=== PATIENT | female | born 2000 | race African-American/Black ===

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

== ENCOUNTER 2019-06-08 09:32 | Emergency (ER) | payer MEDICAID ==
[2019-06-08] MEDS ORDERED: ACETAMINOPHEN 325 MG TABLET PO ONE (09:50)
--- NOTE | 2019-06-08 10:02 | ER Document Report ---
HPI - HPI Time Seen by Provider: 06/08/19 09:47 Pain Level: 4 Context: Patient is a 18-year-old female presents to the emergency department with a chief complaint of toe pain. Patient states last night she was ambulating in her living room when she stubbed her right fifth toe around 9 PM on the bottom of the couch. Patient states that she does have some tenderness to the toe as she walks. She reports that she has taken ibuprofen at home despite her reported allergy which has helped a tiny bit. Patient denies swelling, bruising. Patient denies any significant past medical surgical history. - REPRODUCTIVE Reproductive: DENIES: : - MUSCULOSKELETAL Musculoskeletal: REPORTS: Extremity pain - Right toe pain Past Medical History - General Information source: Patient - Social History Smoking Status: Never Smoker Chew tobacco use (# tins/day): No Frequency of alcohol use: None Drug Abuse: None Family History: Reviewed & Not Pertinent Patient has suicidal ideation: No Patient has homicidal ideation: No - Past Medical History Cardiac Medical History: Reports: None Pulmonary Medical History: Reports: Hx Asthma EENT Medical History: Reports: None Neurological Medical History: Reports: None Endocrine Medical History: Reports: None Renal/ Medical History: Reports: None. Denies: Hx Peritoneal Dialysis Malignancy Medical History: Reports: None GI Medical History: Reports: None Musculoskeletal Medical History: Reports Hx Musculoskeletal Trauma - broken finger Skin Medical History: Reports None Psychiatric Medical History: Reports: None Traumatic Medical History: Reports: Hx Fractures Infectious Medical History: Reports: None Surgical Hx: Negative - Immunizations Immunizations up to date: Yes Hx Diphtheria, Pertussis, Tetanus Vaccination: Yes - 2011 Vertical Provider Document - CONSTITUTIONAL Agree With Documented VS: Yes Exam Limitations: No Limitations General Appearance: No Apparent Distress - INFECTION CONTROL TRAVEL OUTSIDE OF THE [place] IN LAST 30 DAYS: No - HEENT HEENT: Atraumatic, Normocephalic, PERRLA - RESPIRATORY Respiratory: Breath Sounds Normal, No Respiratory Distress - CARDIOVASCULAR Cardiovascular: Regular Rate, Regular Rhythm - GI/ABDOMEN Gastrointestinal: Abdomen Soft, Abdomen Non-Tender, Normal Bowel Sounds - MUSCULOSKELETAL/EXTREMETIES Notes: Tenderness noted to the dorsal aspect of the right dorsal aspect of the fifth toe. There is no edema, deformity or ecchymosis. Patient is able to wiggle her toes without distress. Patient is able to ambulate. - NEURO Level of Consciousness: Awake, Alert, Appropriate - DERM Integumentary: Warm, Dry, No Rash Course - Re-evaluation Re-evalutation: 06/08/19 10:01 We will obtain an x-ray of the fifth toe to rule out fracture dislocation. Patient reports she is allergic to Motrin but did take ibuprofen last night without any reaction. I will give Tylenol for pain. - Vital Signs Vital signs: Temp Pulse Resp BP Pulse Ox 98.0 F 73 18 136/82 H 100 06/08/19 09:41 06/08/19 09:41 06/08/19 09:41 06/08/19 09:41 06/08/19 09:41 - Diagnostic Test Radiology results interpreted by me: 06/08/19 10:53 Toe X-Ray 06/08/19 09:50 IMPRESSION: Likely midshaft 5th proximal phalanx fracture with questionable intra-articular extension into the MTP joint. No significant displacement. Discharge - Discharge Clinical Impression: Toe fracture, right Qualifiers: Encounter type: initial encounter Toe: lesser toe Fracture type: closed Phalanx: proximal Fracture alignment: nondisplaced Qualified Code(s): S92.514A - Nondisplaced fracture of proximal phalanx of right lesser toe(s), initial encounter for closed fracture Condition: Good Disposition: HOME, SELF-CARE Additional Instructions: Today you were seen in the emergency department for a right fifth toe injury. It does appear that he may have a fracture that extends into the joint. We have placed you in a hard walking shoe with crutches. Please follow-up with orthopedics as I have given you referrals. Call them today for an appointment. Please do not weight-bear until you follow-up with orthopedics. Please continue to use Motrin or Tylenol as needed for pain. Please return if you develop severe swelling, severe pain or numbness to the toe or any other concerning signs or symptoms. Fractured Toe You have fractured your toe. Although this fracture doesn't need a cast or splint, emergency evaluation was needed to assess the straightness of the bones and joints. Reduction ("setting") is necessary for toe fractures which are crooked or twisted. A toe fracture will heal in about three weeks. Usually, the fractured toe is taped to the next toe. The second toe acts as a moving splint to protect the broken one. Ice and elevation help during the first 48 hours. You may need crutches at first if walking is painful. When you begin walking, be careful NOT to do things that hurt. If weight bearing is not comfortable within a few days, you may require a special shoe, walking boot, or cast. Call the doctor or return at once if severe swelling, severe pain, or numbness develop in the toe, or if you suspect you may have re-injured it. Forms: Return to Work Referrals: ROSS LYNN DO [ACTIVE STAFF] - Follow up as needed CYDNEY ELIAS MD [ACTIVE STAFF] - Follow up as needed
[2019-06-08] MEDS ORDERED: ACETAMINOPHEN 325 MG TABLET ONE (10:06)
--- NOTE | 2019-06-08 10:31 | RADIOLOGY REPORT (SQ) ---
EXAM DESCRIPTION: TOE RIGHT COMPLETED DATE/TIME: 06/08/2019 10:06 am REASON FOR STUDY: right 5th toe pain, stubbed toe last night COMPARISON: None. NUMBER OF VIEWS: Two views. TECHNIQUE: AP and lateral images acquired of the right fifth toe. LIMITATIONS: None. FINDINGS: MINERALIZATION: Normal. BONES: There is an obliquely oriented lucency through the midshaft 5th proximal phalanx. Questionabl e intra-articular extension seen on the oblique projection into the MTP joint. No significant displa cement. JOINTS: No dislocation. SOFT TISSUES: No soft tissue swelling. No foreign body. OTHER: No other significant finding. IMPRESSION: Likely midshaft 5th proximal phalanx fracture with questionable intra-articular extensio n into the MTP joint. No significant displacement. COMMENT: SITE OF TRAUMA/COMPLAINT MARKED/STAMP COMPLETED: NO. TECHNICAL DOCUMENTATION: JOB ID: [id number] [employer]- All Rights Reserved Reading location - IP/workstation name: [email or web address]
[2019-06-08 11:22] VITALS: BP 121/66
== END 2019-06-08 11:27 | disposition home or self-care (01) ==
LOC: ER 09:32
DX: S92.514A Nondisplaced fracture of proximal phalanx of right lesser toe(s), initial encounter for closed fracture (principal); W22.03XA Walked into furniture, initial encounter; J45.909 Unspecified asthma, uncomplicated
CPT/HCPCS: 73660; J3490; 99283

== ENCOUNTER 2019-11-02 17:10 | Emergency (ER) | payer SELFPAY ==
[2019-11-02] MEDS ORDERED: ACETAMINOPHEN 325 MG TABLET PO ONE (17:25)
[2019-11-02] MEDS ORDERED: DICYCLOMINE HCL 20 MG TABLET PO ONE (17:27)
--- NOTE | 2019-11-02 17:29 | ER Document Report ---
ED Medical Screen (RME) - General Chief Complaint: Flank Pain Stated Complaint: RIGHT LOWER SIDE PAIN Time Seen by Provider: 11/02/19 17:21 Notes: Patient is a 18-year-old female who presents to the emergency department with a chief complaint of right lower flank pain. Her symptoms started about 5 days ago and then went away and then came back this morning. Patient states that her menstrual cycles are irregular. She denies any dysuria or unusual vaginal discharge. Exam: Soft, mildly tender right lateral flank area. I have greeted and performed a rapid initial assessment of this patient. A comprehensive ED assessment and evaluation of the patient, analysis of test results and completion of medical decision making process will be conducted by an additional ED providers. TRAVEL OUTSIDE OF THE [place] IN LAST 30 DAYS: No - Related Data Allergies/Adverse Reactions: ibuprofen [From Motrin] Adverse Reaction (Mild, Verified 11/02/19 17:25) Past Medical History - Social History Family history: Arthritis, DM, Hyperlipidemia, Hypertension, Malignancy, Thyroid Disfunction Pulmonary Medical History: Reports: Hx Asthma Renal/ Medical History: Denies: Hx Peritoneal Dialysis Musculoskeltal Medical History: Reports Hx Musculoskeletal Trauma - broken finger Traumatic Medical History: Reports: Hx Fractures - Immunizations Immunizations up to date: Yes Hx Diphtheria, Pertussis, Tetanus Vaccination: Yes - 2011 Physical Exam - Vital signs Vitals: Temp Pulse Resp BP Pulse Ox 97.7 F 65 16 150/87 H 100 11/02/19 17:20 11/02/19 17:20 11/02/19 17:20 11/02/19 17:20 11/02/19 17:20 Course - Vital Signs Vital signs: Temp Pulse Resp BP Pulse Ox 97.7 F 65 16 150/87 H 100 11/02/19 17:20 11/02/19 17:20 11/02/19 17:20 11/02/19 17:20 11/02/19 17:20
[2019-11-02 18:01] LABS: ABSOLUTE EOSINOPHILS # (AUTO) 0.4 10^3/uL (0.0-0.6); ABSOLUTE LYMPHOCYTES (AUTO) 3.4 10^3/uL (0.5-4.7); ABSOLUTE MONOCYTES (AUTO) 1.1 10^3/uL (0.1-1.4); ABSOLUTE NEUT (AUTO) 3.9 10^3/uL (1.7-8.2); BASOPHILS % (AUTO) 0.5 % (0-2); EOSINOPHILS % (AUTO) 4.8 % (0-6); HEMOGLOBIN 12.9 g/dL (12.0-15.5); LYMPHOCYTES % (AUTO) 38.2 % (13-45); MEAN CORPUSCULAR HEMOGLOBIN 30.8 pg (27.0-33.4); MEAN CORPUSCULAR HGB CONC 34.8 g/dL (32.0-36.0); MEAN CORPUSCULAR VOLUME 89 fl (80-97); MONOCYTES % (AUTO) 12.6 % (3-13); PLATELET COUNT 372 10^3/uL (150-450); RED BLOOD COUNT 4.18 10^6/uL (3.72-5.28); RED CELL DISTRIBUTION WIDTH 12.9 % (11.5-14.0); SEGMENTED NEUTROPHILS % (AUTO) 43.9 % (42-78); TOTAL CELLS COUNTED % (AUTO) 100 %; WHITE BLOOD COUNT 8.8 10^3/uL (4.0-10.5)
[2019-11-02 18:20] LABS: ALBUMIN 4.2 g/dL (3.7-5.6); ALKALINE PHOSPHATASE 73 U/L (50-135); ANION GAP 10 (5-19); ASPARTATE AMINO TRANSFERASE 17 U/L (5-30); BILIRUBIN,DIRECT 0.2 mg/dL (0.0-0.4); BILIRUBIN,TOTAL 0.4 mg/dL (0.2-1.3); BLOOD UREA NITROGEN 14 mg/dL (7-20); CALCIUM 9.4 mg/dL (8.4-10.2); CARBON DIOXIDE 28 mmol/L (22-30); CHLORIDE 99 mmol/L (98-107); GLUCOSE 88 mg/dL (75-110); POTASSIUM 4.1 mmol/L (3.6-5.0); TOTAL PROTEIN 7.9 g/dL (6.3-8.2)
[2019-11-02 19:21] LABS: APPEARANCE,URINE CLOUDY; BILIRUBIN,URINE NEGATIVE (NEGATIVE); COLOR,URINE YELLOW; GLUCOSE, URINE NEGATIVE (NEGATIVE); KETONES,URINE NEGATIVE (NEGATIVE); LEUKOCYTE ESTERASE,URINE TRACE (NEGATIVE); NITRITE,URINE NEGATIVE (NEGATIVE); PROTEIN,URINE NEGATIVE (NEGATIVE); URINE SPECIFIC GRAVITY 1.021; UROBILINOGEN,URINE NEGATIVE mg/dL (<2.0)
[2019-11-02 20:26] VITALS: BP 143/89
--- NOTE | 2019-11-02 20:30 | ER Document Report ---
ED GI/ - General Chief Complaint: Flank Pain Stated Complaint: RIGHT LOWER SIDE PAIN Time Seen by Provider: 11/02/19 17:21 Primary Care Provider: NIURKA CLEANING MD [Primary Care Provider] - Follow up as needed Notes: Patient is a 18-year-old female presents to the emergency department with a chief complaint of right side pain. Patient reports this originally started about 5 days ago. Patient denies injury or fall. Patient reports that she did notice a divot on her mattress but she has been laying on it is not sure if this is what is causing her discomfort. Patient reports that over the weekend she did have multiple episodes of diarrhea that have since subsided. Patient denies fever. Patient has urinary symptoms. Patient denies abdominal pain, pelvic pain, vaginal discharge. Patient reports this morning upon waking up the right side pain had returned. Patient reports that sitting up, and movement seems to make the pain worse. Patient reports she does have a history of irregular menstrual cycles. Patient reports she is sexually active with a last menstrual cycle on . Patient is not on control. TRAVEL OUTSIDE OF THE [place] IN LAST 30 DAYS: No - Related Data Allergies/Adverse Reactions: ibuprofen [From Motrin] Adverse Reaction (Mild, Verified 11/02/19 17:25) Past Medical History - General Information source: Patient - Social History Smoking Status: Never Smoker Frequency of alcohol use: None Drug Abuse: None Lives with: Family Family History: Reviewed & Not Pertinent Patient has suicidal ideation: No Patient has homicidal ideation: No - Past Medical History Cardiac Medical History: Reports: None Pulmonary Medical History: Reports: Hx Asthma EENT Medical History: Reports: None Neurological Medical History: Reports: None Endocrine Medical History: Reports: None Renal/ Medical History: Reports: None. Denies: Hx Peritoneal Dialysis Malignancy Medical History: Reports: None GI Medical History: Reports: None Musculoskeletal Medical History: Reports Hx Musculoskeletal Trauma - broken finger Skin Medical History: Reports None Psychiatric Medical History: Reports: None Traumatic Medical History: Reports: Hx Fractures Infectious Medical History: Reports: None Surgical Hx: Negative - Immunizations Immunizations up to date: Yes Hx Diphtheria, Pertussis, Tetanus Vaccination: Yes - 2011 Review of Systems - Review of Systems Constitutional: No symptoms reported EENT: No symptoms reported Cardiovascular: No symptoms reported Respiratory: No symptoms reported Gastrointestinal: No symptoms reported Genitourinary: No symptoms reported Female Genitourinary: No symptoms reported Musculoskeletal: See HPI Skin: No symptoms reported Hematologic/Lymphatic: No symptoms reported Neurological/Psychological: No symptoms reported Physical Exam - Vital signs Vitals: Temp Pulse Resp BP Pulse Ox 97.7 F 65 16 150/87 H 100 11/02/19 17:20 11/02/19 17:20 11/02/19 17:20 11/02/19 17:20 11/02/19 17:20 Interpretation: Hypertensive - Notes Notes: GENERAL: Well-appearing, well-nourished and in no acute distress. HEAD: Atraumatic, normocephalic. EYES: Pupils equal round and reactive to light, extraocular movements intact, sclera anicteric, conjunctiva are normal. ENT: Nares patent, oropharynx clear without exudates. Moist mucous membranes. NECK: Normal range of motion, supple without lymphadenopathy or JVD. LUNGS: Breath sounds clear to auscultation bilaterally and equal. No wheezes rales or rhonchi. HEART: Regular rate and rhythm without murmurs, rubs or gallops. ABDOMEN: Soft, nontender, normoactive bowel sounds. No guarding, no rebound. No masses appreciated. BACK: No cervical, thoracic, lumbar midline tenderness. No saddle anesthesia, normal distal neurovascular exam. NO CVA tenderness. GENITOURINARY: Deferred. EXTREMITIES: Normal range of motion, no pitting or edema. No clubbing or cyanosis. Patient has tenderness with palpation above the right hip. There is no erythema or ecchymosis. There is no tenderness to the right hip. NEUROLOGICAL: Cranial nerves II through XII grossly intact. Normal speech, normal gait. PSYCH: Normal mood, normal affect. SKIN: Warm, Dry, normal turgor, no rashes or lesions noted. Course - Re-evaluation Re-evalutation: 11/02/19 20:29 Upon initial examination patient is resting comfortably and sitting upright on s tretcher. Patient's physical examination and laboratory findings are unremarkable. Patient is nontoxic-appearing. Patient does not have CVA tenderness. Patient does not have abdominal tenderness. Patient is tender right above the right hip joint. Patient denies injury or fall. This is most likely musculoskeletal in nature. Patient reports that she did notice a divot on her mattress and is not sure if she slept the wrong way causing the pain on her right side. Patient reports she has been laying on her left side and not the right. Patient also is concerned about possible as she does have irregular periods, is sexually active and not on control. Will add on a urine hCG. 11/02/19 20:30 At this time I do not believe any imaging is necessary. We will treat this as a musculoskeletal type pain. Patient to use warm compresses, anti-inflammatories and rest. Patient was given strict return precautions. 11/02/19 20:33 Patient's hCG was negative. I did inform the patient of this. - Vital Signs Vital signs: Temp Pulse Resp BP Pulse Ox 98.2 F 57 L 16 143/89 H 100 11/02/19 20:24 11/02/19 20:24 11/02/19 17:20 11/02/19 20:24 11/02/19 20:24 - Laboratory Result Diagrams: 11/02/19 17:35 11/02/19 17:35 Laboratory results interpreted by me: 11/02/19 17:35 Ur Leukocyte Esterase TRACE H 11/02/19 20:28 Patient's blood work is unremarkable does not show a leukocytosis, anemia, alteration electrolytes or kidney function. Patient's liver enzymes are within normal limits. Patient does not have any sign of infection within the urine to include leukocytes or WBCs. The urinalysis was contaminated with 41 epithelial squamous cells. Laboratory 11/02/19 11/02/19 11/02/19 17:35 17:35 17:35 WBC 8.8 RBC 4.18 Hgb 12.9 Hct 37.0 MCV 89 MCH 30.8 MCHC 34.8 RDW 12.9 Plt Count 372 Lymph % (Auto) 38.2 Banks % (Auto) 12.6 Eos % (Auto) 4.8 Baso % (Auto) 0.5 Absolute Neuts (auto) 3.9 Absolute Lymphs (auto) 3.4 Absolute Monos (auto) 1.1 Absolute Eos (auto) 0.4 Absolute Basos (auto) 0.0 Seg Neutrophils % 43.9 Sodium 137.3 Potassium 4.1 Chloride 99 Carbon Dioxide 28 Anion Gap 10 BUN 14 Creatinine 0.69 Est GFR ( Amer) > 60 Est GFR (MDRD) Non-Af > 60 Glucose 88 Calcium 9.4 Total Bilirubin 0.4 Direct Bilirubin 0.2 Neonat Total Bilirubin Not Reportable Neonat Direct Bilirubin Not Reportable Neonat Indirect Bili Not Reportable AST 17 ALT 12 Alkaline Phosphatase 73 Total Protein 7.9 Albumin 4.2 Urine Color YELLOW Urine Appearance CLOUDY Urine pH 7.0 Ur Specific Mackey 1.021 Urine Protein NEGATIVE Urine Glucose (UA) NEGATIVE Urine Ketones NEGATIVE Urine Blood NEGATIVE Urine Nitrite NEGATIVE Urine Bilirubin NEGATIVE Urine Urobilinogen NEGATIVE Ur Leukocyte Esterase TRACE H Urine WBC (Auto) 5 Urine RBC (Auto) 3 Urine Bacteria (Auto) TRACE Squamous Epi Cells Auto 41 Urine Mucus (Auto) RARE Urine Ascorbic Acid NEGATIVE Discharge - Discharge Clinical Impression: Acute right-sided back pain Qualifiers: Back pain location: low back pain Sciatica presence: without sciatica Qualified Code(s): M54.5 - Low back pain Condition: Stable Disposition: HOME, SELF-CARE Additional Instructions: *Today was seen in the emergency department for right side pain. Your blood work and physical exam was reassuring and at this time he did not show any signs of infection or acute process. Please monitor your symptoms over the next few days. I believe that your symptoms are musculoskeletal in nature. This could have been how you have slept due to your uneven mattress at home. Please use warm compresses to the site, rest, and monitor for worsening signs or symptoms. Please return the emergency department if you do develop abdominal pain that occurs in a specific area, fever, urinary symptoms, vaginal bleeding or discharge, flank pain which is located over the kidney area, or any new or worsening symptoms. Referrals: NIURKA CLEANING MD [Primary Care Provider] - Follow up as needed
== END 2019-11-02 20:50 | disposition home or self-care (01) ==
LOC: ER 17:10
DX: M54.5 Low back pain (principal); R10.9 Unspecified abdominal pain; Z88.6 Allergy status to analgesic agent
CPT/HCPCS: 99284; 36415; 85025; 81025; 80053; 81001; J3490

== ENCOUNTER 2020-04-18 23:11 | Emergency (ER) | payer SELFPAY ==
[2020-04-19 00:01] VITALS: BP 170/90
== END 2020-04-19 00:14 | disposition left against medical advice (07) ==
LOC: ER 23:11
DX: Z53.21 Procedure and treatment not carried out due to patient leaving prior to being seen by health care provider (principal)

== ENCOUNTER 2020-04-20 07:18 | Emergency (ER) | payer SELFPAY ==
[2020-04-20] MEDS ORDERED: ACETAMINOPHEN 325 MG TABLET PO ONE (07:27)
[2020-04-20 07:40] VITALS: BP 156/106
[2020-04-20] MEDS ORDERED: ACETAMINOPHEN 325 MG TABLET ONE (08:00)
--- NOTE | 2020-04-20 08:22 | ER Document Report ---
ED General - General Chief Complaint: Sore Throat Stated Complaint: SORE THROAT Time Seen by Provider: 04/20/20 07:58 TRAVEL OUTSIDE OF THE [place] IN LAST 30 DAYS: No - HPI Notes: Chief complaint: Sore throat and fever History of present illness: Generally healthy 19-year-old female with 24-hour history of sore throat and fever. Patient says she usually gets strep about twice a year. Takes no regular medications. Patient initially reported to the nurses that she had a history of allergy to ibuprofen but then told me she had been taking Motrin at home and tolerating this without difficulty. I advised her that she probably is not allergic to ibuprofen. Last normal menstrual period 2 and half weeks ago. - Related Data Allergies/Adverse Reactions: ibuprofen [From Motrin] Adverse Reaction (Mild, Verified 11/02/19 17:25) Past Medical History - General Information source: Patient - Social History Smoking Status: Current Some Day Smoker Chew tobacco use (# tins/day): No Drug Abuse: None Family History: Reviewed & Not Pertinent Patient has homicidal ideation: No Pulmonary Medical History: Reports: Hx Asthma Endocrine Medical History: Reports: None Renal/ Medical History: Denies: Hx Peritoneal Dialysis Musculoskeletal Medical History: Reports Hx Musculoskeletal Trauma - broken finger Traumatic Medical History: Reports: Hx Fractures - Immunizations Immunizations up to date: Yes Hx Diphtheria, Pertussis, Tetanus Vaccination: Yes - 2011 Review of Systems - Review of Systems Notes: Constitutional: As per HPI. HENT: As per HPI. Eyes: Negative for visual changes. Cardiovascular: Negative for chest pain. Respiratory: Negative for shortness of breath. Gastrointestinal: Negative for abdominal pain, vomiting or diarrhea. Genitourinary: Negative for dysuria. Musculoskeletal: Negative for back pain. Skin: Negative for rash. Neurological: Negative for headaches, weakness or numbness. 10 point ROS negative except as marked above and in HPI. Physical Exam - Vital signs Vitals: Temp Pulse Resp BP 101.7 F H 117 H 20 156/106 H 04/20/20 07:21 04/20/20 07:21 04/20/20 07:21 04/20/20 07:21 - Notes Notes: GENERAL: Obese female of approximately stated age who appears moderately uncomfortable. SKIN: Good turgor no rashes. HEAD: Normocephalic atraumatic. EYES: PERRLA. EOMI. Conjunctivae and sclerae clear. EARS: CANALS AND TMS CLEAR. NOSE: CLEAR. MOUTH: Moist mucosa. Good dentition. No stridor. No trismus. No drooling. Voice is normal. Throat: Tonsils are enlarged and injected nearly touching in the midline with thick yellow-white exudate present. NECK: Supple. No masses or thyromegaly. Bilateral tender anterior cervical adenopathy. Carotids 2+ without bruits. No JVD. BACK: Symmetrical without tenderness. CHEST: Respirations unlabored. Breath sounds clear and symmetrical. HEART: Regular rhythm. No murmur gallop or rub. ABDOMEN: Obese. Soft nontender without masses, organomegaly or rebound. Bowel sounds normally active. No bruits. GENITALIA: Deferred. EXTREMITIES: No edema. No calf tenderness. Cap refill less than 1.5 seconds. Dorsalis pedis and posterior tibial pulses 3+ and symmetrical. NEUROLOGICAL: GCS 15. Alert and oriented x3. Normal gait. Fluent speech. Cranial nerves II through XII intact. Sensorimotor and cerebellar normal. Normal tone. PSYCHIATRIC: Appropriate affect. Course - Re-evaluation Re-evalutation: 04/20/20 08:22 Patient has exudative tonsillitis and appears stable for outpatient management. - Vital Signs Vital signs: Temp Pulse Resp BP Pulse Ox 101.7 F H 117 H 20 156/106 H 04/20/20 07:54 04/20/20 07:21 04/20/20 07:21 04/20/20 07:21 Discharge - Discharge Clinical Impression: Exudative tonsillitis Condition: Stable Disposition: HOME, SELF-CARE Instructions: Amoxicillin ([facility]) Additional Instructions: Tylenol or ibuprofen as needed for fever. Increase oral fluids. Chloroseptic lozenges available [id number] may be soothing to your throat at this time. Gargle 3 times a day with mixture of equal parts warm water, Cepacol mouthwash and hydrogen peroxide. Take prescribed medication as directed. Return here as needed for new or worsening symptoms: Pain that is worsening or unimproved Uncontrolled vomiting High fever or shaking chills Overall worsening Follow-up with your primary care physician next week. Prescriptions: Amoxicillin 1 tab PO TID #30 tab Forms: Elevated Blood Pressure Referrals: [facility] [Provider Group] - Follow up as needed
== END 2020-04-20 08:38 | disposition home or self-care (01) ==
LOC: ER 07:18
DX: J03.90 Acute tonsillitis, unspecified (principal); R50.9 Fever, unspecified; J45.909 Unspecified asthma, uncomplicated; F17.200 Nicotine dependence, unspecified, uncomplicated
CPT/HCPCS: 99282

== ENCOUNTER 2020-04-23 08:18 | Emergency (ER) | payer SELFPAY ==
[2020-04-23] MEDS ORDERED: ACETAMINOPHEN 325 MG TABLET PO ONE (09:28)
[2020-04-23] MEDS ORDERED: CEFTRIAXONE INJ 1000 MG VIAL IM ONE (12:42)
[2020-04-23] MEDS ORDERED: LIDOCAINE 1% INJ (10 MG/ML) 10 ML MDV ONE (12:48)
--- NOTE | 2020-04-23 12:53 | ER Document Report ---
Entered by CLARI ROD SCRIBE 04/23/20 1019 Acting as scribe for:MADELIN DAWN MD ED General - General Chief Complaint: Sore Throat Stated Complaint: SORE THROAT,SWELLING Time Seen by Provider: 04/23/20 08:41 Information source: Patient Notes: This 19 year old female patient presents to the emergency department today with complaints of a sore throat. Patient states she visited the ED x3 days ago for a sore throat and was given amoxicillin, which she has been taking. Patient denies dizziness, vomiting, or chills. TRAVEL OUTSIDE OF THE [place] IN LAST 30 DAYS: No - Related Data Allergies/Adverse Reactions: ibuprofen [From Motrin] Adverse Reaction (Mild, Verified 11/02/19 17:25) Home Medications: Pt. came in today via personal vehicle C/O of continuing sore throat. Pt. was seen on 03/21/2020 in this department and was given a diagnosis of tonsolitis. Pt. was given a prescription for amoxicillin, which she had filled and has been taking. However, Pt. states that pain is still there and throat feels more swollen. Past Medical History - General Information source: Patient - Social History Smoking Status: Current Some Day Smoker Cigarette use (# per day): Yes Chew tobacco use (# tins/day): No Frequency of alcohol use: None Drug Abuse: None Family History: Reviewed & Not Pertinent Patient has homicidal ideation: No Pulmonary Medical History: Reports: Hx Asthma Musculoskeletal Medical History: Reports Hx Musculoskeletal Trauma - broken finger Traumatic Medical History: Reports: Hx Fractures - Immunizations Immunizations up to date: Yes Hx Diphtheria, Pertussis, Tetanus Vaccination: Yes - 2011 Review of Systems - Review of Systems Constitutional: See HPI. denies: Chills EENT: See HPI, Throat pain Cardiovascular: See HPI. denies: Dizziness Respiratory: No symptoms reported Gastrointestinal: See HPI. denies: Vomiting Genitourinary: No symptoms reported Female Genitourinary: No symptoms reported Musculoskeletal: No symptoms reported Skin: No symptoms reported Hematologic/Lymphatic: No symptoms reported Neurological/Psychological: No symptoms reported -: Yes All other systems reviewed and negative Physical Exam - Vital signs Vitals: Temp 99.2 F 04/23/20 08:19 - General General appearance: Appears well, Alert - HEENT Head: Normocephalic, Atraumatic Eyes: Normal Pupils: PERRL Pharynx: Erythema, Exudate - white, Tonsillar hypertrophy - bilateral Neck: Anterior cervical chain - Large lymphnodes - Respiratory Respiratory status: No respiratory distress Chest status: Nontender Breath sounds: Normal Chest palpation: Normal - Cardiovascular Rhythm: Regular Heart sounds: Normal auscultation Murmur: No - Abdominal Inspection: Normal Distension: No distension Bowel sounds: Normal Tenderness: Nontender - Extremities General upper extremity: Normal inspection. No: Edema General lower extremity: Normal inspection. No: Edema - Neurological Neuro grossly intact: Yes Cognition: Normal Orientation: AAOx4 Speech: Normal - Psychological Associated symptoms: Normal affect, Normal mood - Skin Skin Temperature: Warm Skin Moisture: Dry Skin Color: Normal Course - Re-evaluation Re-evalutation: 04/23/20 12:45 Patient states she is ready to be discharged. However patient's Monospot and strep screening has been negative. A throat culture was ordered to further try to identify infectious cause. On closer questioning as patient had C had any recent oral sex and she did admit to having oral sex within the past 30 days. Patient states she is never had sexually transmitted disease of the pharynx in the past. 04/23/20 12:46 Patient stated that she was not able to stay away from the results of a pharyngeal swab testing for GC chlamydia of the pharynx. I explained the patient that nonetheless we will go ahead and treat her for both gonorrhea and and chlamydia. - Vital Signs Vital signs: Temp Pulse Resp BP Pulse Ox 99.2 F 95 16 177/80 H 97 04/23/20 08:36 04/23/20 08:36 04/23/20 08:36 04/23/20 08:36 04/23/20 08:36 04/23/20 12:46 Vital signs shows systolic hypertension otherwise a temperature of 99.2. - Diagnostic Test Radiology reviewed: Image reviewed, Reports reviewed Discharge - Discharge Clinical Impression: Acute pharyngitis, unspecified Condition: Stable Disposition: HOME, SELF-CARE Instructions: Sore Throat ([facility]) Additional Instructions: Sore Throat Sore throats may be caused by viruses, bacteria, or fungi. Most are due to a virus, and must get better on their own. Bacterial sore throats, particularly those due to "strep," need treatment with antibiotics. If an antibiotic is prescribed, be sure to take the medication for a full 10 days. Failure to take the antibiotic can result in complications such as rheumatic fever. Sometimes, an injection of antibiotics is given instead of pills or liquid. This single "shot" is equal in effectiveness to the oral medication. To relieve symptoms, take acetaminophen for pain. Sip clear liquids frequently, or eat popsicles or ice chips. Anesthetic sprays or lozenges may help. Make sure the air in the room is not too dry. Avoid using decongestants or antihistamines. Call the doctor if there is no improvement in two days, or if you have difficulty breathing, increasing throat pain, high fever, rash, or frequent vomiting. Your testing today for strep and mono has reported as negative. However on close questioning we did discuss other possibilities which could be an STD infection. An STD swab was done today the results are pending at this time meanwhile we went ahead and treated you with IM Rocephin and a prescription of Zithromax will be discharged sent with you on discharge. We will call you with the results once they are available on the STD swab. Follow-up with your primary care physician for further evaluation and follow-up Prescriptions: Azithromycin 1,000 mg PO ONCE PRN #2 tablet PRN Reason: I personally performed the services described in the documentation, reviewed and edited the documentation which was dictated to the scribe in my presence, and it accurately records my words and actions.
[2020-04-23 13:03] VITALS: BP 114/97
== END 2020-04-23 13:08 | disposition home or self-care (01) ==
LOC: ER 08:18
DX: J02.9 Acute pharyngitis, unspecified (principal); F17.210 Nicotine dependence, cigarettes, uncomplicated
CPT/HCPCS: 99283; 96372; 36415; 87070; 87880; 86308; J0696